=== PATIENT | female | born 1985 | race Caucasian/White ===

== ENCOUNTER 2019-10-17 07:54 | Inpatient (IN) | payer BC, MEDICAID ==
[~2019-10-17] VITALS: Ht 165.1 cm; Wt 64.0 kg
[2019-10-17] MEDS ORDERED: MORPHINE SULFATE 4 MG/ML SYR/VIAL IV ONE (09:15)
[2019-10-17] MEDS ORDERED: ONDANSETRON HCL 4 MG/2 ML VIAL IV ONE (09:15)
[2019-10-17 09:22] LABS: Basophils # (auto) 0 uL; Basophils % (auto) 0.4 % (0.0-2.0); Eosinophils # (auto) 0.3 uL; Eosinophils % (auto) 3.6 % (0.0-7.0); Hematocrit 46.1 % (36.0-46.0); Hemoglobin 15.9 g/dL (12.2-16.2); Lymphocytes # (auto) 1.4 uL; Lymphocytes % (auto) 16.2 % (10.0-50.0); Mean Corpuscular Hemoglobin 32.1 pg (28.0-32.0); Mean Corpuscular Hgb Conc. 34.4 g/dL (32.0-36.0); Mean Corpuscular Volume 93.4 fL (80.0-100.0); Monocytes # (auto) 0.5 uL; Monocytes % (auto) 5.4 % (0.0-12.0); Neutrophils # (auto) 6.3 uL; Neutrophils % (auto) 74.4 % (37.0-80.0); Platelet Count (auto) 190 10^3/uL (140-450); Red Blood Cells 4.94 10^6/uL (4.0-5.20); Red Cell Distribution Width 13.4 % (11.8-14.3); White Blood Cell 8.5 10^3/uL (4.4-10.8)
[2019-10-17 09:42] LABS: Albumin 4.1 g/dL (3.4-5.0); Anion Gap 11 (5-15); Blood Urea Nitrogen 14 mg/dL (7-18); Carbon Dioxide 25 mmol/L (21-32); Chloride 99 mmol/L (98-107); Glucose 74 mg/dL (74-106); Magnesium 2.4 mg/dL (1.6-2.6); Potassium 3.3 mmol/L (3.5-5.1); Sodium 135 mmol/L (136-145)
[2019-10-17 09:48] LABS: Alanine Aminotransferase 22 U/L (13-56); Alkaline Phosphatase 51 U/L (45-117); Aspartate Aminotransferase 21 U/L (15-37); BUN/Creatinine Ratio 25.9; Bilirubin, Total 0.5 mg/dL (0.2-1.0); GFR African American 166 mL/min; GFR Non-African American 137 mL/min; Total Protein 7.7 g/dL (6.4-8.2)
[2019-10-17] MEDS ORDERED: IOHEXOL 300 MG/ML 100ML BOTTLE IJ ONE (11:26)
[2019-10-17] MEDS ORDERED: PIPERACILLIN-TAZOB 3.375GM 100 ML IV ONE (11:30)
[2019-10-17 11:58] LABS: INR 1.03 (0.9-1.15); Partial Thromboplastin Time 27.2 sec (23.64-32.05)
[2019-10-17] MEDS ORDERED: NITROGLYCERIN 0.4 MG SL TAB SL PRN (13:15)
[2019-10-17] MEDS ORDERED: MORPHINE SULF INJ 2 MG/ML SYRINGE 1ML IV PRN ×2 (13:15)
[2019-10-17] MEDS ORDERED: metroNIDAZOLE 500MG/100ML 100 ML IV SCH ×2 (14:00→15:30)
--- NOTE | 2019-10-17 14:10 | NUR ---
Telemetry admit from ER DARYL KAUFMAN admitted to Telemetry unit after SBAR received. Patient oriented to STEFAN PERES, primary RN, unit, room, bed, and unit policies regarding patient care and visiting hours. Patient now on continuous telemetry monitoring, tele box # 30 and telemetry reading on arrival to unit is . Patient encouraged to call if they need something. All questions and concerns addressed, patient verbalized understanding. Note:
[2019-10-17 14:15] VITALS: BP 135/77
[2019-10-17] MEDS ORDERED: POTASSIUM CHL 20MEQ/100ML 100 ML IV SCH ×2 (14:30→15:30)
[2019-10-17] MEDS: SODIUM CHLORIDE 0.9% 1,000 ML IV SCH ×2 (15:38→22:49)
[2019-10-17] MEDS: MORPHINE SULF INJ 2 MG/ML SYRINGE 1ML IV PRN ×2 (15:40→22:50)
--- NOTE | 2019-10-17 16:34 | NUR ---
MD BARRY ROUNDED ON PATIENT ORGIN OF CHEST PAIN EXPLAINED AND RECREATED MY MD DURING EXAMINATION. PT COMPLAIN OF SEVER IV PAIN DUE TO POTASSIUM RUNNING, OK PER MD BARRY TO CHANGE THE LAST 40MEQ OF POTASSIUM TO PO. NEW ORDERS FOR LIPID PANEL AND REPEAT EKG. STATED HE WILL REVIEW ECHO
[2019-10-17] MEDS ORDERED: POTASSIUM CHL 20 Meq TABLET PO ONE (16:45)
[2019-10-17 17:00] VITALS: BP 117/73
[2019-10-17 17:59] LABS: Cholesterol 190 mg/dL (< 200)
[2019-10-17 18:02] LABS: HDL Cholesterol 57 mg/dL (40-59); LDL Cholesterol 105 mg/dL (< 100); Triglycerides 169 mg/dL (< 150)
[2019-10-17 22:00] VITALS: BP 108/66
[2019-10-17] MEDS: metroNIDAZOLE 500MG/100ML 100 ML IV SCH (22:49)
[2019-10-17] MEDS: FAMOTIDINE (10MG/ML) 2ML VL IV SCH (22:49)
[2019-10-18 05:00] VITALS: BP 104/71
[2019-10-18] MEDS: MORPHINE SULF INJ 2 MG/ML SYRINGE 1ML IV PRN ×4 (05:04→22:39)
[2019-10-18] MEDS: PROMETHAZINE HCL 25 MG/ML 1ML IV PRN ×4 (05:05→22:40)
[2019-10-18] MEDS ORDERED: ALPR0.5T PO (05:09)
[2019-10-18] MEDS: SODIUM CHLORIDE 0.9% 1,000 ML IV SCH ×3 (05:19→17:40)
[2019-10-18 05:38] LABS: Basophils # (auto) 0 uL; Basophils % (auto) 0.6 % (0.0-2.0); Eosinophils # (auto) 0.3 uL; Eosinophils % (auto) 3.8 % (0.0-7.0); Hematocrit 40.8 % (36.0-46.0); Hemoglobin 13.6 g/dL (12.2-16.2); Lymphocytes # (auto) 1.7 uL; Lymphocytes % (auto) 24.3 % (10.0-50.0); Mean Corpuscular Hemoglobin 31.5 pg (28.0-32.0); Mean Corpuscular Hgb Conc. 33.4 g/dL (32.0-36.0); Mean Corpuscular Volume 94.3 fL (80.0-100.0); Monocytes # (auto) 0.4 uL; Monocytes % (auto) 5.4 % (0.0-12.0); Neutrophils # (auto) 4.7 uL; Neutrophils % (auto) 65.9 % (37.0-80.0); Nucleated Red Blood Cells % 0.1 %; Platelet Count (auto) 168 10^3/uL (140-450); Red Blood Cells 4.33 10^6/uL (4.0-5.20); Red Cell Distribution Width 13.3 % (11.8-14.3); White Blood Cell 7.1 10^3/uL (4.4-10.8)
[2019-10-18] MEDS: metroNIDAZOLE 500MG/100ML 100 ML IV SCH ×3 (05:45→21:34)
[2019-10-18 06:02] LABS: Albumin 3.6 g/dL (3.4-5.0); Calcium 7.9 mg/dL (8.5-10.1); Potassium 3.9 mmol/L (3.5-5.1)
[2019-10-18 06:07] LABS: BUN/Creatinine Ratio 15.2; Bilirubin, Total 0.6 mg/dL (0.2-1.0); Total Protein 6.6 g/dL (6.4-8.2)
--- NOTE | 2019-10-18 08:03 | NUR ---
Opening Shift Note Assumed care of patient, awake and alert. No S/S of distress/SOB or pain. Instructed on POC and to call for assist PRN, will continue to monitor for changes Q1hr and PRN
[2019-10-18 09:00] VITALS: BP 102/62
[2019-10-18] MEDS ORDERED: cefTRIAXone 1GM/50ML D5W 50 ML IV SCH (09:00)
[2019-10-18] MEDS: FAMOTIDINE (10MG/ML) 2ML VL IV SCH ×2 (09:29→21:34)
--- NOTE | 2019-10-18 12:59 | NUR ---
md gilmore rounded on patient plan for discharge tomorrow if lipase continues to trend down, per pt request pt placed on clear liquid diet, pt and child at bedside during rounding
[2019-10-18 13:00] VITALS: BP 94/62
[2019-10-18 17:00] VITALS: BP 109/69
[2019-10-18 21:26] LABS: Alcohol, Urine < 3.0 mg/dL (0-5); Amphetamine Screen, Urine NEGATIVE (NEGATIVE); Barbiturate Scree,Urine NEGATIVE (NEGATIVE); Benzodiazephine Screen, Urine NEGATIVE (NEGATIVE); Cocaine Screen, Urine NEGATIVE (NEGATIVE); Opiate Scree,Urine NEGATIVE (NEGATIVE); Phencyclidine Screen, Urine NEGATIVE (NEGATIVE)
[2019-10-18 21:34] LABS: Cannabinoid Screen, Urine POSITIVE (NEGATIVE)
[2019-10-18 21:48] VITALS: BP 112/70
[2019-10-19] MEDS: SODIUM CHLORIDE 0.9% 1,000 ML IV SCH ×2 (00:50→05:56)
[2019-10-19 04:53] VITALS: BP 114/70
--- NOTE | 2019-10-19 05:00 | NUR ---
PT AMB TO THE NURSES STATION AND ASKED, " DO ANY OF YOU KNOW WHERE MY VAPE IS?" AFTER ASKING PT THE LAST PLACE WE WOULD HAVE SEEN IT SHE STATES, " THE KITCHEN TABLE, AND OH I AM NOT AT HOME AM I?" ASSISTED PT BACK TO HER ROOM AND PT STATES THAT SHE IS OK NOW AND THAT SHE REALIZES SHE IS IN THE HOSPITAL. ASSISTED PT BACK TO BED. AT THIS TIME.
[2019-10-19] MEDS: metroNIDAZOLE 500MG/100ML 100 ML IV SCH (05:56)
--- NOTE | 2019-10-19 06:46 | NUR ---
PT REPORTS THAT IV IS BURNIONG AND IV DC'D WITH CATH TIP INTACT. NEW IV TO BE STARTED. Addendum: 10/19/19 at 0652 by AGUEDA CEDILLO RN SPELLING CORRECTION FOR; BURNING NOT BURNIONG
[2019-10-19 09:00] VITALS: BP 118/75
[2019-10-19 10:19] VITALS: BP 118/75
--- NOTE | 2019-10-19 10:53 | NUR ---
patient left to home accompanied by her pt ambulatory no respiratory distress noted
== END 2019-10-19 10:52 | disposition home or self-care (01) | DRG 440 ==
LOC: ER 07:54 → TELE-CENTR 07:55
PROVIDERS: ADMIT Internal Medicine; ATTEND Internal Medicine
DX: K85.90 Acute pancreatitis without necrosis or infection, unspecified (principal); F12.90 Cannabis use, unspecified, uncomplicated; R94.31 Abnormal electrocardiogram [ECG] [EKG]; Z82.49 Family history of ischemic heart disease and other diseases of the circulatory system; Z87.891 Personal history of nicotine dependence
CPT/HCPCS: 36415; 71046; 74177; 76705; 80053; 80061; 80307; 81025; 82150; 83605; 83690; 83735; 83880; 84484; 85025; 85610; 85730; 87040; 93005; 93306; G0378; J0696; J2405; J2543; J3480; J3490

== ENCOUNTER 2021-04-05 12:50 | Outpatient (CLI) | payer BC, MEDICAID ==
[~2021-04-05] VITALS: Ht 167.6 cm; Wt 59.4 kg
[~2021-04-05 12:50] MED LIST: ALPR0.5T PO
[2021-04-05 13:20] LABS: Basophils # (auto) 0.1 10 ^3/uL (0-0.2); Basophils % (auto) 0.7 % (0.0-2.0); Eosinophils # (auto) 0.4 10 ^3/uL (0-0.8); Eosinophils % (auto) 5.2 % (0.0-7.0); Hematocrit 38.7 % (36.0-46.0); Hemoglobin 13.6 g/dL (12.2-16.2); Lymphocytes # (auto) 2.4 10 ^3/uL (0.4-5.4); Lymphocytes % (auto) 32.9 % (10.0-50.0); Mean Corpuscular Hgb Conc. 35.1 g/dL (32.0-36.0); Mean Corpuscular Volume 91.3 fL (80.0-100.0); Monocytes # (auto) 0.5 10 ^3/uL (0-1.3); Monocytes % (auto) 7.2 % (0.0-12.0); Nucleated Red Blood Cells % 0.1 %; Red Blood Cells 4.24 10^6/uL (4.0-5.20); Red Cell Distribution Width 13.3 % (11.8-14.3); White Blood Cell 7.3 10^3/uL (4.4-10.8)
[2021-04-05 13:27] LABS: Urine Bacteria NONE SEEN /hpf (None Seen); Urine Blood Negative /uL (Negative); Urine Mucus FEW (None Seen); Urine Specific Gravity 1.025 (1.001-1.035); Urine WBC <1 /hpf (0 - 5)
[2021-04-05 13:58] LABS: Potassium 4.6 mmol/L (3.5-5.1)
[2021-04-05 14:07] LABS: Albumin 4.4 g/dL (3.4-5.0); BUN/Creatinine Ratio 22.1; Bilirubin, Total 0.4 mg/dL (0.2-1.0); Calcium 8.9 mg/dL (8.5-10.1); Total Protein 7.1 g/dL (6.4-8.2)
== END 2021-04-05 13:01 | disposition home or self-care (01) ==
LOC: LAB 12:50 → EDSTATUS 04-08 08:30
PROVIDERS: ATTEND Specialist
DX: Z01.812 Encounter for preprocedural laboratory examination (principal); Z20.822 Contact with and (suspected) exposure to COVID-19; N90.89 Other specified noninflammatory disorders of vulva and perineum
CPT/HCPCS: 36415; 80053; 81001; 81025; 84702; 85025; 85049; 86850; 86900; 86901; U0003

== ENCOUNTER 2024-07-29 09:43 | Emergency (ER) | payer OTHER, MEDICAID ==
[~2024-07-29] VITALS: Ht 165.1 cm; Wt 63.6 kg
[2024-07-29 11:01] VITALS: BP 114/62; PULSE 90; RESP 16; TEMP 98.9; O2SAT 98
[2024-07-29] MEDS ORDERED: HYDR-4902 PO (11:41)
== END 2024-07-29 12:11 | disposition home or self-care (01) ==
LOC: ER 09:43
DX: S82.142A Displaced bicondylar fracture of left tibia, initial encounter for closed fracture (principal); X58.XXXA Exposure to other specified factors, initial encounter; Y93.89 Activity, other specified; Y92.89 Other specified places as the place of occurrence of the external cause; Y99.8 Other external cause status